=== PATIENT | male | born 1950 | race Caucasian/White ===

== ENCOUNTER 2020-12-27 14:13 | Outpatient (REF) | payer MEDICARE, MEDICAID, SELFPAY | END 2020-12-27 14:14 | disposition home or self-care (01) | LOC: HO.BBR 14:13 | PROVIDERS: Visit Provider Internal Medicine | DX: Z13.89 Encounter for screening for other disorder (principal) ==

== ENCOUNTER 2022-02-21 15:08 | Outpatient (REF) | payer MEDICARE, MEDICAID, SELFPAY | END 2022-02-21 15:09 | disposition home or self-care (01) | LOC: HO.BBR 15:08 | PROVIDERS: Visit Provider Internal Medicine | DX: Z13.89 Encounter for screening for other disorder (principal) ==

== ENCOUNTER 2023-01-10 10:04 | Outpatient (REF) | payer MEDICARE, MEDICAID, SELFPAY ==
[2023-01-10 13:26] LABS: Alanine Aminotransferase 20 U/L (0-40); Albumin Level 3.6 g/dL (3.5-5.0); Alkaline Phosphatase 76 U/L (39-117); Aspartate Amino Transferase 24 U/L (5-37); Bilirubin Direct 0.3 mg/dL (0.0-0.5); Bilirubin Total 1.2 mg/dL (0.0-1.0); Iron 194 mcg/dL (45-160); Percent Iron Saturation 89 % (15-50); Total Iron Binding Capacity 219 mcg/dL (228-428); Total Protein 6.2 g/dL (6.5-8.0); Unsaturated Iron Binding < 25 ug/dL
[2023-01-10 13:30] LABS: Ferritin 256 ng/mL (20-250)
== END 2023-01-10 10:05 | disposition home or self-care (01) ==
LOC: HO.BBR 10:04
PROVIDERS: PCP Pediatrics; Visit Provider Internal Medicine
DX: E83.110 Hereditary hemochromatosis (principal)
CPT/HCPCS: 36415; 80076; 82728; 83540

== ENCOUNTER 2023-09-12 10:05 | Outpatient (REF) | payer MEDICARE, MEDICAID, SELFPAY | END 2023-09-12 10:06 | disposition home or self-care (01) | LOC: HO.BBR 10:05 | PROVIDERS: PCP Pediatrics; Visit Provider Internal Medicine | DX: Z13.89 Encounter for screening for other disorder (principal) ==

== ENCOUNTER 2024-03-12 11:12 | Outpatient (REF) | payer MEDICARE, MEDICAID, SELFPAY | END 2024-03-12 11:13 | disposition home or self-care (01) | LOC: HO.BBR 11:12 | PROVIDERS: PCP Pediatrics; Visit Provider Internal Medicine | DX: Z13.89 Encounter for screening for other disorder (principal) ==

== ENCOUNTER 2024-07-14 11:02 | Outpatient (REF) | payer MEDICARE, MEDICAID, SELFPAY | END 2024-07-14 11:03 | disposition home or self-care (01) | LOC: HO.BBR 11:02 | PROVIDERS: PCP Pediatrics; Visit Provider Internal Medicine | DX: Z13.89 Encounter for screening for other disorder (principal) ==

== ENCOUNTER 2024-11-09 11:07 | Outpatient (REF) | payer MEDICARE, MEDICAID, SELFPAY ==
--- OUTSIDE RECORDS SUMMARY | 2024-11-09 13:45 | XMS_ITS | Clinical Summary ---
Author Organization [facility] Address [address] [place] [address] Care Team Providers Care Capacity Planning Engineer Name Role Phone Jarrett Jeronimo MD Primary Care Provider [phone] Allergies No known active allergies Medications Medication Sig Dispensed Refills Start Date End Date Status insulin lispro protamine-insulin lispro (HumaLOG MIX 50/50 KWIKPEN) injection 100 units/mL Inject under the skin. 0 Active insulin glargine (LANTUS SOLOSTAR) injection 100 units/mL Inject under the skin. 0 Active atorvastatin (LIPITOR) tablet 40 mg Take 1 tablet (40 mg total) by mouth daily. 0 Active Active Problems No known active problems Social History Tobacco Use Types Packs/Day Years Used Date Smoking Tobacco: Never Assessed Sex and Gender Information Value Date Recorded Sex Assigned at Not on file Gender Identity Not on file Sexual Orientation Not on file Job Start Date Occupation Industry Not on file Not on file Not on file Last Filed Vital Signs Vital Sign Reading Time Taken Comments Blood Pressure 137/83 02/17/2024 2:39 PM EDT Pulse 69 02/17/2024 2:39 PM EDT Temperature 36.7 ??C (98 ??F) 02/17/2024 2:39 PM EDT Respiratory Rate - - Oxygen Saturation 99% 02/17/2024 2:39 PM EDT Inhaled Oxygen Concentration - - Weight 91.4 kg (201 lb 9.6 oz) 02/17/2024 2:39 P M EDT Height 186.7 cm (6' 1.5 ) 02/17/2023 2:27 PM EDT Body Mass Index 26.24 02/17/2023 2:27 PM EDT Plan of Treatment Health Maintenance Due Date Last Done Comments Hepatitis C Screening 1950 Depression Screening 1962 Preventative Health Evaluation 1968 Colon Cancer Screening (Colonoscopy) 11/11/1995 Hepatitis B Vaccines (2 of 3 - 19+ 3-dose series) 07/10/2012 06/12/2012 Fall Risk Assessment 11/11/2015 COVID-19 Vaccine (3 - 2023- season) 2024 12/13/2020, 11/22/2020 Influenza Vaccine (#1) 2024 , 08/08/2022, 08/06/2021, Additional history exists RSV Adult > 60+ Yrs or (1 - 1-dose 75+ series) 2025 DTap / Tdap / Td (3 - Td or Tdap) 11/27/2032 11/27/2022, 04/27/2012 Shingrix-Zoster Vaccine Completed 07/05/2020, 05/03 Pneumococcal Vaccine Completed 01/22/2022, 04/29/2016, 05/19/2014 RSV Ped < 20 months Aged Out No longe r eligible based on patient's age to complete this topic Care Teams Capacity Planning Engineer Relationship Specialty Start Date End Date Jarrett Jeronimo MD PCP - General Cloud Automation Tester 01/12/20
--- OUTSIDE RECORDS SUMMARY | 2024-11-09 13:45 | XMS_ITS | Clinical Summary ---
Author Organization [facility] [address] [facility] Address [address] [place] [address] Phone Care Team Providers Care Durability Engineer Name Role Phone Shorty Jeronimo MD Primary Care Provider Allergies No known active allergies Medications atorvastatin (LIPITOR) 40 mg tablet Take 1 tablet (40 mg total) by mouth 1 (one) time each day. Active insulin glargine (LANTUS SoloStar) 100 unit/mL (3 mL) injection pen Inject under the skin. Active insulin lispro protamine-insu avery lispro (HumaLOG 50/50 KwikPen) 100 unit/mL (50-50) injection pen Inject under the skin. Active propranolol LA (Inderal LA) 60 mg 24 hr capsule Take 1 capsule (60 mg total) by mouth 1 (one) time each day. Do not crush, chew, or split. 90 each 1 4 Active glucose blood (Freestyle InsuLinx Test Strips) test strip Use as instructed 300 each 1 4 06/15/20 25 Active insulin lispro (HumaLOG U-100 Insulin) 100 unit/mL injection Inject 3-6 Units under the skin 3 (three) times a day before meals. -Administer within 15 minutes of a meal 30 mL 1 4 Active BD Insulin Syringe Ultra-Fine 0.5 mL 31 gauge x 5/16 syringe USE DIRECTED FOUR TIMES A DAY 300 each 1 5 Active blood sugar diagnostic (FreeStyle Lite Strips) test strip 1 each by Other route 3 (three) times a day. Use as instructed 300 each 2 5 Active blood sugar diagnostic (FreeStyle Lite Strips) test strip 1 each by Other route 3 (three) times a day. Use as instructed 300 each 2 4 10/14/19 25 Discontinu ed(Reorder ) amoxicillin-cl avulanate (AUGMENTIN) 875-125 mg per tablet Take 1 tablet by mouth 2 (two) times a day for 10 days. 20 each 5 10/24/19 25 Encounters Date Type Department Care Team Description 10/13/2024 11:15 AM EDT Office Visit Adult Medicine - [place] [address] [place] [address] Onur Edmondson PA Acute bacterial sinusitis (Primary Dx); Hereditary hemochromatosis ([facility] V24); Type 2 diabetes mellitus with other specified complication, with long-term current use of insulin ([facility] V24, [facility] V28) 10/13/2024 Telephone Adult Medicine - [place] [address] [place] [address] Shorty Jeronimo MD Sinusitis 08/17/[address] [facility] Hematology Oncology [address] [place] [address] Edwin Ellis MD from Last 3 Months Immunizations Name Administration Dates Next Due Hepatitis B (Spcumbw-C-Tblzj , Recombivax HB-Adult) 19yo and older 06/12/2012 Influenza Quadravalent, 0.5m l (Fluzone High-dose) 65yo and older 05/03/2020 Influenza trivalent, 0.5mL ( Fluzone High-dose) 65yo and older 04/02/2023,08/08/2022,08/06/2021,05/24,05/26/2018,05/19/2017 Influenza trivalent, with pr eservative (Fluzone; Afluria) 6mo and older 04/29/2016,05/26/2015,05/19/2014,05/20,04/27/2012,06/12/2011 Pneumococcal conjugate 13 va lent (Prevnar 13, PCV13) 2mo and older 04/29/2016 Pneumococcal polysaccharide 23 valent (Pneumovax 23) 2yo and older 01/22/2022,05/19/2014 Tdap Tetanus diptheria acell ular pertussis (Boostrix; Adacel) 7yo and older 11/27/2022,04/27/2012 Zoster recombinant (Shingrix ) 19yo and older 07/05/2020,05/03/2020 Surgical History Surgery Date Site/Laterality Comments TONSILLECTOMY PROCEDURE: HISTORICAL TONSILLECTOMY ESOPHAGOGASTRODUODENOSCOPY 08/05/12 [facility] PROCEDURE: [place] ESOPHAGOGASTRODUODENOSCOPY TRANSORAL DIAGNOSTIC; COMMENT: Grade II joel III esophageal varices and portal hypertensive gastropathy; negative SHADY COLONOSCOPY 08/05/12 [facility] PROCEDURE: HISTORICAL COLONOSCOPY; COMMENT: adenomas and rectal varices; repeat in 5 yrs ESOPHAGOGASTRODUODENOSCOPY 12/12/14 [facility] PROCEDURE: NC ESOPHAGOGASTRODUODENOSCOPY TRANSORAL DIAGNOSTIC; COMMENT: small varices and portal hypertensive gastropathy OTHER SURGICAL HISTORY PROCEDURE: NC OPTX PERIARTICULAR FRACTURE &/DISLOCATION [place] Medical History Medical History Date Comments Actinic keratosis, hx of DX:Acti tigre keratosis, hx of Diabetes mellitus type 2, co ntrolled, with complications (CMS/HCC V24, CMS/HCC V28) DX:Diabetes mellitus type 2, controlled, with complications (HCC) Family History Medical History Relation Name Comments Hemochromatosis Brother Diabetes Father Hemochromatosis Father Lung cancer Father Thyroid disease Mother Bladder Cancer Sister Relation Name Status Comments Brother Alive Father Mother Sister Alive Social History Tobacco Use Types Packs/Day Years Used Date Smoking Tobacco: Never Smokeless Tobacco: Never Alcohol Use Standard Drinks/Week Comments No 0 (1 standard drink = 0.6 oz pur e alcohol) Sex and Gender Information Value Date Recorded Sex Assigned at Not on file Legal Sex Male 1:36 PM EST Gender Identity Not on file Sexual Orientation Not on file Obstetrics History Last Filed Vital Signs Vital Sign Reading Time Taken Comments Blood Pressure 144/83 10/13/2024 11:34 AM EDT Pulse 69 10/13/2024 11:34 AM EDT Temperature 36.7 ??C (98.1 ??F) 10/13/2024 11:34 AM E DT Respiratory Rate - - Oxygen Saturation 98% 10/13/2024 11:34 AM EDT Inhaled Oxygen Concentration - - Weight 92.1 kg (203 lb) 10/13/2024 11:34 AM EDT Height 185.4 cm (6' 1 ) 10/13/2024 11:34 AM EDT Body Mass Index 26.78 10/13/2024 11:34 AM EDT Plan of Treatment Upcoming Encounters Date Type Department Care Team (Late st Contact Info) Description 11/17/2024 1:30 PM EDT Office Visit [facility] Hematology Oncology [address] [place] [address] Edwin Ellis MD [address] [place] [address] 03/17/2025 10:45 AM EDT Office Visit Adult Medicine - [place] [address] [place] [phone] Shorty Jeronimo MD [address] [place] [address] Health Maintenance Due Date Last Done Comments Diabetes: Annual GFR (Glomerular Filtration Rate) 1950 Diabetes: Annual Foot Exam 1960 Diabetes: Annual Retina Eye Exam 1960 Hepatitis A Vaccines (1 of 2 - Risk 2-dose series) 1969 RSV Immunization Adult Patients (1 - Risk 60-74 years 1-dose series) 2010 Hepatitis B Vaccines (2 of 3 - Risk 3-dose series) 07/10/2012 06/12/2012 Cholesterol Screening (Lipid Panel) 07/05/2022 Colorectal Cancer Screening: Colonoscopy 07/05/2022 Depression Screening 07/05/2022 Diabetes: Annual Urine Albumin-Creatinine Ratio (uACR) 07/05/2022 Falls Risk Assessment 07/05/2022 Hepatitis C Screening 07/05/2022 Medicare Annual Wellness Visit 07/05/2022 Social Influencers of Health Screening 07/05/2022 COVID-19 Vaccine ( season) 2024 05/14/2023, 08/08/2022, 09/07/2021, Additional history exists Diabetes: Blood Sugar Control Test (HGBA1C) 09/24/2024 03/24/2024 Influenza Vaccine (Season Ended) 2025 04/02/2023, 08/08/2022, 08/06/2021, Additional history exists DTaP,Tdap,and Td Vaccines (3 - Td or Tdap) 11/27/2032 11/27/2022, 04/27/2012 Zoster Vaccines Completed 07/05/2020, 05/03/2020 Pneumococcal Vaccine: 50+ Years Completed 01/22/2022, 04/29/2016, 05/19/2014 HIB Vaccines Aged Out No longer eligi ble based on patient's age to complete this topic HPV Vaccines Aged Out No longer eligi ble based on patient's age to complete this topic IPV Vaccines Aged Out No longer eligi ble based on patient's age to complete this topic MMR Vaccines Aged Out No longer eligi ble based on patient's age to complete this topic Meningococcal ACWY Vaccine Aged Out N o longer eligible based on patient's age to complete this topic Meningococcal B Vaccine Aged Out No l onger eligible based on patient's age to complete this topic RSV Immunization Patients Under 20 months Aged Out No longer eligible based on patient's age to complete this topic Varicella Vaccines Aged Out No longer eligible based on patient's age to complete this topic Insurance MEDICAID - [place] MEDICARE Care Teams Durability Engineer Relationship Specialty Start Date End Date Shorty Jeronimo MD [address] [place] [id number] PCP - General Internal Medicine 12/24/11
== END 2024-11-09 11:08 | disposition home or self-care (01) ==
LOC: HO.BBR 11:07
PROVIDERS: Visit Provider Internal Medicine
DX: Z13.89 Encounter for screening for other disorder (principal)

== ENCOUNTER 2025-02-23 14:07 | Outpatient (REF) | payer MEDICARE, MEDICAID, SELFPAY ==
--- OUTSIDE RECORDS SUMMARY | 2025-02-23 14:47 | XMS_ITS | Clinical Summary ---
Author Organization [facility] Address [address] [place], [place] [id number] Care Team Providers Care Golf Course Laborer Name Role Phone Jarrett Jeronimo MD Primary Care Provider [phone] Allergies No known active allergies Medications Medication [...] 69 02/17/2024 2:39 PM EDT Temperature 36.7 C (98 F) 02/17/2024 2:39 PM EDT Respiratory Rate - [...] season) 2024 12/13/2020, 11/22/2020 Influenza Vaccine (#1) 2025 , 08/08/2022, 08/06/2021, Additional history exists RSV Adult > 60+ Yrs or (1 - 1-dose 75+ series) 2025 DTap / Tdap / Td (3 - Td or Tdap) 11/27/2032 11/27/2022, 04/27/2012 Shingrix-Zoster Vaccine Completed 07/05/2020, 05/03 Pneumococcal Vaccine Completed 01/22/2022, 04/29/2016, 05/19/2014 RSV Ped < 20 months Aged Out No longe r eligible based on patient's age to complete this topic Care Teams Golf Course Laborer Relationship Specialty Start Date End Date Jarrett Jeronimo MD PCP - General Metal Roofer 01/12/20
--- OUTSIDE RECORDS SUMMARY | 2025-02-23 14:47 | XMS_ITS ---
Author Name [facility] Organization Unknown Care Team Organization Name Specialty Phone Email Start Date End Da te [facility] Joslyn Wang Primary Care 04/03/2023 024 [facility] Jarrett Jeronimo Primary Care 06/04/2022 03/15/2024
== END 2025-02-23 14:08 | disposition home or self-care (01) ==
LOC: HO.BBR 14:07
PROVIDERS: PCP Pediatrics; Visit Provider Internal Medicine
DX: Z13.89 Encounter for screening for other disorder (principal)